=== PATIENT | female | born 1985 | race Caucasian/White ===

== ENCOUNTER 2023-07-15 17:24 | Emergency (ER) | payer OTHER ==
[~2023-07-15] VITALS: Ht 182.9 cm; Wt 116.2 kg
[2023-07-15] MEDS ORDERED: SPRITAM1000 MG PO (17:41)
[2023-07-15] MEDS ORDERED: PROZAC10 MG PO (17:42)
[2023-07-15] MEDS ORDERED: BUSPIRONE HCL5 MG PO (17:42)
--- OUTSIDE RECORDS SUMMARY | 2023-07-15 18:40 | XMS ---
PreManage Notification: LATASHA DUARTE Security Dealer Compliance Representative Events No recent Security Events currently on file CRITERIA MET - [facility] - 2 Visits in 30 Days CARE PROVIDERS LARY SORIANO Physician Assembler [employer] Current PHONE: Unknown [facility] Clinic/Center: [facility] Current WORKERS CL[facility] \F\ Center (FQ) [facility] PHONE: [phone] John has no Care Guidelines for this patient. E.D. VISIT COUNT (12 MO.) [address] TOTAL 4 NOTE: Visits indicate total known visits. ED/UCC VISIT TRACKING (12 MO.) 07/15/2023 17:[address] [facility] [place] TYPE: Emergency COMPLAINT: - AL[facility] [place] [facility] COMPLAINT: - EPILEPSY UNS NOT INTRACT W/O SE - Walk In_POSS SEIZURE DIAGNOSES: 0. Epilepsy, unspecified, not intractable, without status epilepticus 1. Epilepsy, unspecified, not intractable, without status epilepticus 3. Other mcc (current) drug therapy 4. Personal history of transient ischemic attack (TIA), and cerebral infarction without residual deficits 06/05/2023 13:21 [facility] [place] TYPE: Emergency COMPLAINT: - CEREBRAL INFARCTION UNSPECIFIED - DISORIENTATION UNSPECIFIED - DIZZINESS AND GIDDINESS - Dizziness_Dizziness DIAGNOSES: 0. Disorientation, unspecified 1. Other specified disorders of brain 5. Dizziness and giddiness 6. Epilepsy, unspecified, not intractable, without status epilepticus 7. Personal history of transient ischemic attack (TIA), and cerebral infarction without residual deficits 8. 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 Disorientation, unspecified 1. Headache, unspecified 5. Other specified disorders of teeth and supporting structures INPATIENT VISIT TRACKING (12 MO.) No inpatient visits to display in this time frame [email or web address]
== END 2023-07-15 18:30 | disposition home or self-care (01) ==
LOC: ED 17:24
DX: G40.909 Epilepsy, unspecified, not intractable, without status epilepticus (principal); Z88.5 Allergy status to narcotic agent; Z79.899 Other long term (current) drug therapy
CPT/HCPCS: 99283